=== PATIENT | female | born 1955 | race Caucasian/White ===

== ENCOUNTER 2023-12-06 06:09 | Emergency (ER) | payer MEDICARE, SELFPAY ==
[2023-12-06] VITALS (8 sets, daily range): BP systolic 117–145; BP diastolic 54–82; BMI 19.9
[2023-12-06 06:40] LABS: % Basophils 0.2 % (0-2); % Eosinophils 1.5 % (0-6); % Immature Granulocytes 0.2 % (0-0.5); % Lymphocytes 14.6 % (20.5-51.1); % Monocytes 2.7 % (1.7-9.3); % Neutrophils 80.8 % (42.2-75.2); Absolute Eosinophils 0.1 10^3/uL (0-0.7); Absolute Lymphocytes 0.8 10^3/uL (1.2-3.4); Absolute Monocytes 0.2 10^3/uL (0.1-0.6); Absolute Neutrophils 4.4 10^3/uL (1.4-6.5); Hemoglobin 14.7 g/dL (12.0-16.0); Mean Corpuscular Hgb 29.2 pg (27.0-31.0); Mean Corpuscular Volume 83.3 fL (81.0-99.0); Mean Platelet Volume 9.8 fL (7.4-10.4); Nucleated Red Blood Cells % 0 %; Platelet Count 232 10^3/uL (130-400); Red Blood Cell Count 5.04 10^6/uL (4.20-5.40); Red Cell Dist. Width 14.1 % (11.5-14.5); White Blood Cell Count 5.5 10^3/uL (4.8-10.8)
[2023-12-06] MEDS: MORPHINE SULFATE 4 MG IV (06:46)
--- NOTE | 2023-12-06 06:49 | ED.GENMED ---
History of Present Illness
General
Chief Complaint: Chest Pain
Source: patient
Exam Limitations: none
Time Seen by Provider: 12/06/23 06:27
Travel History
Have you had any contact with someone who has COVID-19?: No
Do you have any symptoms of coronavirus? Fever > 100 degrees, chills, cough, shortness of breath, sore throat, loss of taste or smell, muscle aches, or headache?: No
History of Present Illness
History of Present Illness:
This is a 68-year-old female who presents with sharp left-sided chest pain under her left breast laterally. Patient states this started last night. She does feel little short of breath but thinks it may be related to the pain. She tried Tylenol
and pain patches without any improvement. She states it hurts much worse with movement or with deep breathing. She has had pleurisy in the back. Also states in the past she has had an x-ray that showed 'fluid'. No cough. No fevers. No leg
pain. No leg swelling. No recent travel. No recent hospitalization. No hemoptysis.
Past History
Past History
ED Past Medical History: Asthma
ED Past Surgical History: Appendectomy, Gynecological and Orthopedic
Social History
Tobacco: Non-smoker
Alcohol: None
Drug: None
Personal: Other
Living: with family
Employment: Other
Family History
Family History: Other
Phy Exam
Physical Exam
Physical Exam:
CONSTITUTIONAL Patient alert and oriented to person, place and time. Mild pain distress. Vital signs reviewed.
HEAD atraumatic, normocephalic.
EYES eyelids normal to inspection, Pupils equally round and reactive to light, Extraocular muscles intact, Conjunctiva normal, Sclera normal.
NECK normal range of motion, Trachea midline, no jugular venous distention.
RESPIRATORY CHEST No respiratory distress noted, Chest expansion equal, Bilateral breath sounds clear. Moderate left chest wall tenderness noted laterally around ribs 6 through 8. There is no crepitus. There is no rash. Patient noted to be
splinting on exam
CARDIOVASCULAR regular rate and rhythm, Heart sounds normal.
ABDOMEN abdomen nontender, Bowel sounds normal. No distention.
BACK normal inspection, no obvious deformities
UPPER EXTREMITY range of motion normal, Motor strength normal, no cyanosis, no edema.
LOWER EXTREMITY range of motion normal, Motor strength normal, no cyanosis, no edema.
NEURO Speech normal, No focal motor deficits, Jason coma scale 15, Memory normal, Cranial Nerves intact to screening exam.
SKIN skin warm, dry, and normal in color.
PSYCHIATRIC patient oriented to person place and time, Normal affect.
Scores
Heart Score for Chest Pain Patients
STEMI patient?: No
History: Slightly or Non-Suspicious
ECG: Normal
Age: >/= 65 years
Risk Factors: 1 or 2 Risk Factors
Troponin: </= Normal Limit
Heart Score for Chest Pain Patients: 3
Heart Score Risk: 2.5% MACE over next 6 weeks
Course
Orders/Labs/Results
Orders:
Orders
12/06/23 06:11
Electrocardiogram (*1) Urgent
Reason for Study: Chest Pain
EKG- Treatment ONCE
12/06/23 06:33
Complete Blood Count/With Diff Urgent
Troponin I Urgent
12/06/23 06:40
Morphine Sulfate 4 mg IV NOW STA
CR Chest - 2 Views Urgent
Comment:
Reason For Exam: cp
12/06/23 07:42
Comprehensive Metabolic Panel Urgent
Comment: REDRAW, ORIGINAL SAMPLE WAS HEMOLYZED
12/06/23 08:10
CT Chest W/o Iv Contrast Urgent
Comment:
Reason For Exam: L pleuritic CP, abn cxr
12/06/23 09:59
Ketorolac [Toradol] 15 mg IV NOW STA
12/06/23 10:41
Azithromycin [Zithromax] 500 mg PO NOW STA
12/06/23 10:56
Cefuroxime Axetil [Ceftin] 500 mg PO NOW STA
Abnormal Lab Results
12/06/23 12/06/23
06:33 07:42
Absolute Lymphs (auto) 0.8 L 10^3/uL
(1.2-3.4)
Neutrophils % 80.8 H %
(42.2-75.2)
Lymphocytes % 14.6 L %
(20.5-51.1)
Chloride 108 H mmol/L
(98-107)
BUN 21 H mg/dl
(7-17)
Glucose 110 H mg/dl
(70-99)
AST 38 H U/L
(14-36)
12/06/23 06:33
12/06/23 07:42
Vital Signs
Initial and Last Documented VS:
Initial Vital Signs
Temp Pulse Resp BP Pulse Ox
97.3 F 94 38 145/82 93
12/06/23 06:21 12/06/23 06:21 12/06/23 06:21 12/06/23 06:21 12/06/23 06:21
Last Documented Vital Signs
Temp Pulse Resp BP Pulse Ox
99.3 F 78 18 121/70 94
12/06/23 13:57 12/06/23 13:57 12/06/23 13:57 12/06/23 13:57 12/06/23 13:57
MDM/Problems Addressed
MDM/Problems Addressed:
Pleuritic chest pain, parapneumonic effusion, pneumonia
*Radiology
Radiology exam reviewed: preliminary read by ED provider (Left effusion) and radiology read reviewed
*Pulse Oximetry
Patient hypoxic: no
Comment: Pulse ox 96% on reevaluation
*EKG
Interpreted by ED Provider?: Yes
Interpretation: normal
Rate: normal
Rhythm: sinus
Ischemia: non-specific ST changes
*Spark Tester Interpretation
Rate: normal
Interpretation: normal
Rhythm: sinus
*Critical Care Note
Total Time (30-74mins, 75-104mins- exclusive of procedures): Not Applicable
Data Reviewed
Source: patient
Further Testing Considered But Not Given:
Considered CTA but do not suspect PE in light of obvious findings by noncontrast CT. She has an allergy to IV dye and I do not feel that the benefits outweigh the risks
Update Note
Update Note:
Will treat with incentive spirometry, antibiotics but advised PCP and pulmonology follow-up. Return return warnings were reviewed and patient agrees
ED Attending Note
-
Portions of this chart may have been created with voice recognition software.� Occasional wrong word or��sound alike� substitutions may have occurred due to the inherent limitations of voice recognition software.
Discharge Plan
Departure
Patient Disposition: Home (Routine Discharge)
Date of Disposition: 12/06/23
Time of Disposition: 13:19
Patient with high blood pressure during this ER visit?: No
Discharge Problem:
Chest pain, pleuritic, Parapneumonic effusion, Pneumonia
Instructions: Pneumonia in adults, Pleural effusion, Chest Pain That Is Not Caused by the Heart (DC)
Prescriptions:
New
azithromycin 250 mg tablet
250 mg PO DAILY 4 Days Qty: 4 0RF
cefuroxime axetil 500 mg tablet
500 mg PO BID 7 Days Qty: 14 0RF
No Action
tamsulosin [Flomax] 0.4 mg capsule
0.4 mg PO DAILY 4 Days Qty: 4 0RF
oxycodone-acetaminophen [Percocet] 5-325 mg tablet
1 tab PO Q4HPRN PRN (Reason: pain) Qty: 7 0RF
Referrals:
Arianna James MD [Family Provider] -
Activity Restrictions/Additional Instructions:
Please see your doctor in the next 3 days for follow-up and reevaluation. Return immediately for shortness of breath, worsening pain, coughing up blood, weakness of any kind or any other concerns. Further follow-up with pulmonology may be
necessary if symptoms persist
Interventions
Interventions:
*Risk Screen - Suicide Last Done: 12/06/23 06:21
*General Assessment Last Done: 12/06/23 06:21
*Neglect/Abuse Screening Last Done: 12/06/23 06:21
ED- Fall Risk Assessment Last Done: 12/06/23 06:41
*ED COVID-19 Vaccine History Last Done: 12/06/23 13:57
*Nursing Disposition Last Done: 12/06/23 13:57
ED- Cardiac Assessment Last Done: 12/06/23 06:41
Discharge Date and Time
Discharge Date/Time: 12/06/23 14:06
[2023-12-06 07:03] LABS: Troponin I < 0.012 ng/ml
[2023-12-06 08:13] LABS: ALT (SGPT) 28 U/L (0-35); AST (SGOT) 38 U/L (14-36); Albumin 4.2 g/dl (3.5-5.0); Alkaline Phosphatase 84 U/L (38-126); Blood Urea Nitrogen 21 mg/dl (7-17); Calcium 9.3 mg/dl (8.4-10.2); Carbon Dioxide 24 mmol/L (22-30); Chloride 108 mmol/L (98-107); Estimated Creatinine Clearance 82 ml/min; Glucose 110 mg/dl (70-99); Potassium 4.3 mmol/L (3.5-5.1); Sodium 137 mmol/L (135-145); Total Bilirubin 0.7 mg/dl (0.2-1.3); Total Protein 7.7 g/dl (6.3-8.2); eGFR > 60.00
[2023-12-06] MEDS: TORADOL 15 MG IV (10:05)
[2023-12-06] MEDS: CEFTIN 500 MG PO (11:15)
[2023-12-06] MEDS: ZITHROMAX 500 MG PO (11:15)
== END 2023-12-06 14:06 | disposition home or self-care (01) ==
LOC: EMR 06:09
PROVIDERS: EMERGENCY PHYSICIAN Emergency Medicine; FAMILY PHYSICIAN Internal Medicine
DX: R07.89 Other chest pain (principal); J18.9 Pneumonia, unspecified organism; J91.8 Pleural effusion in other conditions classified elsewhere
CPT/HCPCS: 99285; 96374; 96375; 71046; 71250; 80053; 84484; 85025; 93005